=== PATIENT | female | born 1970 | race Caucasian/White ===

== ENCOUNTER 2022-09-29 17:14 | Inpatient (IN) | payer MEDICAID ==
[~2022-09-29] VITALS: Ht 162.6 cm; Wt 84.5 kg
[2022-09-29 17:42] LABS: Eosinophils # (auto) 0.2 10 ^3/uL (0-0.8); Hematocrit 37.1 % (36.0-46.0); Hemoglobin 11.8 g/dL (12.2-16.2); Red Cell Distribution Width 13.6 % (11.8-14.3)
[2022-09-29 17:44] LABS: Basophils # (auto) 0.1 10 ^3/uL (0-0.2); Basophils % (auto) 0.9 % (0.0-2.0); Lymphocytes # (auto) 1.8 10 ^3/uL (0.4-5.4); Lymphocytes % (auto) 15.4 % (10.0-50.0); Mean Corpuscular Hemoglobin 27.5 pg (28.0-32.0); Mean Corpuscular Hgb Conc. 31.8 g/dL (32.0-36.0); Mean Corpuscular Volume 86.3 fL (80.0-100.0); Monocytes # (auto) 0.4 10 ^3/uL (0-1.3); Monocytes % (auto) 3.5 % (0.0-12.0); Neutrophils # (auto) 9.1 10 ^3/uL (1.6-8.6); Neutrophils % (auto) 78.2 % (37.0-80.0); White Blood Cell 11.7 10^3/uL (4.4-10.8)
[2022-09-29 18:00] LABS: Albumin 3.4 g/dL (3.4-5.0); Calcium 10.5 mg/dL (8.5-10.1)
[2022-09-29 18:40] LABS: Potassium 3.6 mmol/L (3.5-5.1)
[2022-09-29 19:04] LABS: BUN/Creatinine Ratio 15.1 (10.0-20.0); Bilirubin, Total 0.3 mg/dL (0.2-1.0); Total Protein 7.9 g/dL (6.4-8.2)
[2022-09-29 21:35] VITALS: PULSE 85; RESP 19; O2SAT 94
[2022-09-29] MEDS ORDERED: DOCUSATE SOD 100 MG CAP PO PRN (22:45)
[2022-09-29] MEDS ORDERED: DEXTROSE (50%) 50ML SYRG IV PRN (22:45)
[2022-09-29] MEDS ORDERED: MORPHINE SULFATE INJ 2 MG/ml SYRG IV PRN (22:45)
[2022-09-29] MEDS ORDERED: ACETAMINOPHEN 325 MG TAB PO PRN (22:45)
[2022-09-29] MEDS ORDERED: ONDANSETRON HCL 4 MG/2 ML VIAL IV PRN (22:45)
[2022-09-29] MEDS ORDERED: NITROGLYCERIN 0.4 MG SL TAB SL PRN (22:45)
[2022-09-29] MEDS ORDERED: HYDROcodone-ACET 5/325MG TAB PO PRN (22:45)
[2022-09-29] MEDS ORDERED: cefTRIAXone 1GM/50ML D5W 50 ML IV ONE (23:15)
[2022-09-30 03:39] LABS: Urine Bacteria MANY /hpf (None Seen); Urine Blood TRACE /uL (Negative); Urine Hyaline Cast MANY /lpf (0 - 2); Urine Mucus FEW (None Seen); Urine Specific Gravity 1.022 (1.001-1.035); Urine WBC 206 /hpf (0 - 5); Urine WBC Clumps PRESENT /hpf (None Seen)
[2022-09-30 04:55] LABS: Calcium 9.5 mg/dL (8.5-10.1); Potassium 3.5 mmol/L (3.5-5.1)
[2022-09-30 04:59] LABS: BUN/Creatinine Ratio 16.1 (10.0-20.0); Bilirubin, Total 0.3 mg/dL (0.2-1.0); Total Protein 7.1 g/dL (6.4-8.2)
[2022-09-30 05:04] LABS: Basophils # (auto) 0.1 10 ^3/uL (0-0.2); Basophils % (auto) 0.9 % (0.0-2.0); Eosinophils # (auto) 0.2 10 ^3/uL (0-0.8); Eosinophils % (auto) 2.6 % (0.0-7.0); Lymphocytes # (auto) 2.7 10 ^3/uL (0.4-5.4); Lymphocytes % (auto) 31.9 % (10.0-50.0); Mean Corpuscular Hgb Conc. 32.3 g/dL (32.0-36.0); Mean Corpuscular Volume 86.6 fL (80.0-100.0); Monocytes # (auto) 0.5 10 ^3/uL (0-1.3); Monocytes % (auto) 5.8 % (0.0-12.0); Neutrophils # (auto) 4.9 10 ^3/uL (1.6-8.6); Neutrophils % (auto) 58.8 % (37.0-80.0); Red Blood Cells 3.93 10^6/uL (4.0-5.20); Red Cell Distribution Width 13.6 % (11.8-14.3); White Blood Cell 8.4 10^3/uL (4.4-10.8)
[2022-09-30] MEDS: SODIUM CHLOR 0.9% PF (SALINE LOCK) 10ML VIAL/SYR IV SCH ×3 (06:02→22:01)
[2022-09-30] MEDS: InsuLIN REG 1unit/0.01ml Soln (100units/ml) SC SCH ×4 (07:00→22:00)
[2022-09-30] MEDS: ACCU-CHEK COMFORT CURVE STRIP VI SCH ×4 (07:05→22:01)
[2022-09-30] MEDS: LEVOTHYROXINE SODIUM 50 MCG TAB PO SCH (07:05)
[2022-09-30 09:00] VITALS: BP_SYST 129; BP_SYST 162; BP_DIAS 73; BP_DIAS 80; PULSE 66; PULSE 71; RESP 18; RESP 20; TEMP 97.6; TEMP 98.2; O2SAT 91; O2SAT 96
[2022-09-30] MEDS ORDERED: CARV25TA55 PO (09:40)
[2022-09-30] MEDS ORDERED: SEMA2INJ3 SC (09:40)
[2022-09-30] MEDS ORDERED: TRAZ150T84 PO (09:40)
[2022-09-30] MEDS ORDERED: IBUP-1456 PO (09:40)
[2022-09-30 10:46] LABS: Cholesterol 191 mg/dL (< 200)
[2022-09-30 10:49] LABS: HDL Cholesterol 38 mg/dL (40-59); LDL Cholesterol 123 mg/dL (< 100); Triglycerides 304 mg/dL (< 150)
[2022-09-30] MEDS: ASPirin 81 mg TAB PO SCH (11:32)
[2022-09-30] MEDS: FAMOTIDINE 20 MG TAB PO SCH (11:32)
[2022-09-30] MEDS: SODIUM CHLORIDE 0.9% 1,000 ML IV SCH ×2 (11:45→21:45)
[2022-09-30 11:46] LABS: Alcohol, Urine < 3.0 mg/dL (0-10); Amphetamine Screen, Urine NEGATIVE (NEGATIVE); Barbiturate Scree,Urine NEGATIVE (NEGATIVE); Benzodiazephine Screen, Urine NEGATIVE (NEGATIVE); Cannabinoid Screen, Urine NEGATIVE (NEGATIVE); Cocaine Screen, Urine NEGATIVE (NEGATIVE); Opiate Scree,Urine NEGATIVE (NEGATIVE); Phencyclidine Screen, Urine NEGATIVE (NEGATIVE)
[2022-09-30] MEDS ORDERED: hydrALAZINE HCL 20 MG/ML VL IV PRN (15:30)
[2022-09-30] MEDS ORDERED: CARVEDILOL 12.5 MG TAB PO ONE (16:00)
[2022-09-30 17:00] VITALS: BP 171/82; PULSE 85; RESP 20; TEMP 98.1; O2SAT 96
[2022-09-30] MEDS ORDERED: amLODIPine BESYLATE 5 MG TAB PO ONE (18:00)
[2022-09-30 20:00] VITALS: PULSE 86; RESP 18
[2022-09-30] MEDS: cefTRIAXone 1GM/50ML D5W 50 ML IV SCH (20:42)
[2022-09-30] MEDS: CARVEDILOL 12.5 MG TAB PO SCH (21:57)
[2022-09-30 22:00] VITALS: BP_SYST 157; BP_SYST 160; BP_SYST 164; BP_DIAS 83; BP_DIAS 85; PULSE 79; PULSE 81; PULSE 89; RESP 17; TEMP 98.4; O2SAT 96
[2022-10-01 05:00] VITALS: BP 125/70; PULSE 76; RESP 18; TEMP 98.1; O2SAT 99
[2022-10-01] MEDS: LEVOTHYROXINE SODIUM 50 MCG TAB PO SCH (06:08)
[2022-10-01] MEDS: InsuLIN REG 1unit/0.01ml Soln (100units/ml) SC SCH ×4 (06:08→21:39)
[2022-10-01] MEDS: SODIUM CHLOR 0.9% PF (SALINE LOCK) 10ML VIAL/SYR IV SCH ×3 (06:08→21:39)
[2022-10-01] MEDS: ACCU-CHEK COMFORT CURVE STRIP VI SCH ×4 (06:08→21:39)
[2022-10-01] MEDS: SODIUM CHLORIDE 0.9% 1,000 ML IV SCH ×2 (07:45→17:45)
[2022-10-01 08:00] VITALS: PULSE 80; PULSE 81; RESP 17
[2022-10-01 09:23] VITALS: BP 156/79; PULSE 81; RESP 17; TEMP 98.1; O2SAT 81
[2022-10-01] MEDS ORDERED: amLODIPine BESYLATE 5 MG TAB PO SCH (10:00)
[2022-10-01] MEDS ORDERED: LISINOPRIL 20 MG TAB PO ONE (11:15)
[2022-10-01] MEDS: FAMOTIDINE 20 MG TAB PO SCH (11:44)
[2022-10-01] MEDS: ASPirin 81 mg TAB PO SCH (11:45)
[2022-10-01] MEDS: CARVEDILOL 12.5 MG TAB PO SCH ×2 (11:47→21:39)
[2022-10-01] MEDS ORDERED: LOSARTAN POTASSIUM 25 MG TAB PO ONE (12:30)
[2022-10-01] MEDS: cloNIDine HCL 0.1 MG TAB PO PRN (14:52)
[2022-10-01 16:53] VITALS: BP 153/78; PULSE 75; RESP 18; TEMP 98.4; O2SAT 93
[2022-10-01 20:00] VITALS: PULSE 82; RESP 18
[2022-10-01] MEDS: cefTRIAXone 1GM/50ML D5W 50 ML IV SCH (20:35)
[2022-10-02] MEDS: SODIUM CHLORIDE 0.9% 1,000 ML IV SCH ×2 (03:45→13:45)
[2022-10-02 05:00] VITALS: BP 141/73; PULSE 83; RESP 16; TEMP 97.9; O2SAT 96
[2022-10-02] MEDS: LEVOTHYROXINE SODIUM 50 MCG TAB PO SCH (06:15)
[2022-10-02] MEDS: SODIUM CHLOR 0.9% PF (SALINE LOCK) 10ML VIAL/SYR IV SCH ×2 (06:15→13:30)
[2022-10-02] MEDS: InsuLIN REG 1unit/0.01ml Soln (100units/ml) SC SCH ×3 (06:15→16:44)
[2022-10-02] MEDS: ACCU-CHEK COMFORT CURVE STRIP VI SCH ×3 (06:15→16:44)
[2022-10-02 08:30] VITALS: PULSE 68; PULSE 81; RESP 16
[2022-10-02 09:00] VITALS: BP 147/76; PULSE 81; RESP 17; TEMP 97.6; O2SAT 89
[2022-10-02] MEDS ORDERED: LOSARTAN POTASSIUM 25 MG TAB PO SCH (10:00)
[2022-10-02] MEDS ORDERED: LISINOPRIL 20 MG TAB PO SCH (10:00)
[2022-10-02] MEDS: FAMOTIDINE 20 MG TAB PO SCH ×2 (10:00→11:08)
[2022-10-02 10:45] VITALS: BP 141/73; PULSE 83; RESP 16; TEMP 97.9; O2SAT 96
[2022-10-02] MEDS: ASPirin 81 mg TAB PO SCH (11:08)
[2022-10-02] MEDS: CARVEDILOL 12.5 MG TAB PO SCH (11:10)
[2022-10-02] MEDS ORDERED: CIPR-173 PO (11:13)
[2022-10-02] MEDS ORDERED: LOSA50TA46 PO (11:14)
[2022-10-02] MEDS ORDERED: CAR125T PO (11:14)
[2022-10-02] MEDS ORDERED: LISINOPRIL 20 MG TAB PO ONE (13:45)
[2022-10-02] MEDS: cloNIDine HCL 0.1 MG TAB PO PRN (16:43)
[2022-10-02 17:00] VITALS: BP 163/79; PULSE 69; RESP 19; TEMP 97.2; O2SAT 94
[2022-10-03] MEDS ORDERED: LISINOPRIL 20 MG TAB PO SCH (10:00)
== END 2022-10-02 16:00 | disposition home or self-care (01) | DRG 720 ==
LOC: ER 17:14 → EDBD 17:14 → TELE 22:46 → TELE-WESTW 09-30 07:56
PROVIDERS: ADMIT Family Medicine; ATTEND Family Medicine
DX: A41.9 Sepsis, unspecified organism (principal); N17.9 Acute kidney failure, unspecified; G45.0 Vertebro-basilar artery syndrome; D75.839 Thrombocytosis, unspecified; E11.9 Type 2 diabetes mellitus without complications; E03.9 Hypothyroidism, unspecified; E83.52 Hypercalcemia; I10 Essential (primary) hypertension; N39.0 Urinary tract infection, site not specified; Z90.49 Acquired absence of other specified parts of digestive tract; Z82.49 Family history of ischemic heart disease and other diseases of the circulatory system; Z80.8 Family history of malignant neoplasm of other organs or systems; Z80.0 Family history of malignant neoplasm of digestive organs; Z91.199 Patient's noncompliance with other medical treatment and regimen due to unspecified reason
CPT/HCPCS: 36415; 70450; 70486; 72125; 73030; 73560; 80053; 80061; 80307; 81001; 82962; 83036; 83880; 84443; 84484; 85025; 87040; 87081; 87086; 87088; 87186; 93005; 93306; 93886; 93975; 96365; G0378; J0696